=== PATIENT | female | born 1990 | race Caucasian/White ===

== ENCOUNTER 2020-10-08 20:35 | Emergency (ER) | payer OTHER ==
[~2020-10-08] VITALS: Ht 157.5 cm; Wt 65.8 kg
[2020-10-08 20:52] VITALS: Ht 157.5 cm; Wt 65.8 kg
[2020-10-08 22:55] VITALS: BP 105/59
== END 2020-10-08 22:56 | disposition home or self-care (01) ==
LOC: ED 20:35
DX: J02.9 Acute pharyngitis, unspecified (principal); J45.909 Unspecified asthma, uncomplicated; M79.10 Myalgia, unspecified site; R50.9 Fever, unspecified
CPT/HCPCS: J1100; J1885; J7030